=== PATIENT | female | born 1955 | race Caucasian/White ===

== ENCOUNTER → 2018-10-14 | Outpatient (CLI) | payer MEDICARE, OTHER ==
[2018-10-14 12:57] LABS: BASO % 0.5 % (0.0-1.0); EOS # 0.1 10^3/uL (0.0-0.50); EOS % 1.5 % (0.0-3.0); HEMATOCRIT 44.9 % (36.0-47.0); HEMOGLOBIN 14.6 g/dl (12.0-15.5); LYMPH # 1.5 10^3/uL (1.5-4.5); LYMPH % 24.9 % (24.0-44.0); MEAN CORPUSCULAR HGB CONC 32.5 g/dl (32.0-36.5); MEAN CORPUSCULAR VOLUME 89.3 fl (80.0-96.0); MONO # 0.5 10^3/uL (0.0-0.8); MONO % 8.7 % (0.0-5.0); NEUTROPHILS % 64.1 % (36.0-66.0); PLATELET COUNT, AUTOMATED 233 10^3/uL (150-450); RED BLOOD COUNT 5.03 10^6/uL (4.00-5.40); WHITE BLOOD COUNT 6.2 10^3/uL (4.0-10.0)
[2018-10-14 13:12] LABS: HEMOGLOBIN A1c 5.8 %
[2018-10-14 13:26] LABS: ALBUMIN 3.8 GM/DL (3.2-5.2); ALT/SGPT 18 U/L (12-78); BILIRUBIN,TOTAL 0.5 MG/DL (0.2-1.0); BLOOD UREA NITROGEN 23 MG/DL (7-18); CALCIUM LEVEL 8.6 MG/DL (8.8-10.2); CARBON DIOXIDE LEVEL 27 MEQ/L (21-32); CHLORIDE LEVEL 107 MEQ/L (98-107); CHOLESTEROL LEVEL 194 MG/DL (<200); CHOLESTEROL RISK RATIO 2.939 (<5); CPK CREATINE PHOSPHOKINASE 91 U/L (26-192); CREATININE FOR GFR 0.71 MG/DL (0.55-1.30); FREE T4 0.83 NG/DL (0.76-1.46); GLOMERULAR FILTRATION RATE > 60.0 (>45); GLUCOSE, FASTING 87 MG/DL (70-100); HDL CHOLESTEROL 66 MG/DL (>40); LDL CHOLESTEROL 116 MG/DL (<100); NON-HDL-C 128 MG/DL; POTASSIUM SERUM 4.3 MEQ/L (3.5-5.1); SODIUM LEVEL 141 MEQ/L (136-145); TOTAL PROTEIN 6.9 GM/DL (6.4-8.2); TRIGLYCERIDES LEVEL 59 MG/DL (<150)
== END ==
LOC: M WUC 08:37
PROVIDERS: ATTEND Physician Assistant
DX: E78.2 Mixed hyperlipidemia (principal)

== ENCOUNTER 2019-03-06 15:42 | Emergency (ER) | payer OTHER ==
[~2019-03-06] VITALS: Ht 170.2 cm; Wt 71.1 kg
[2019-03-06] MEDS ORDERED: ATOR1TAB19 PO (15:55)
[2019-03-06] MEDS ORDERED: D 1010004 PO (15:55)
[2019-03-06] MEDS ORDERED: MELO7.5T35 PO (15:55)
[2019-03-06] MEDS ORDERED: DERMABOND TOPICAL SKIN ADHESIVE TOP ONE (16:30)
[2019-03-06 17:50] VITALS: BP 146/95
--- NOTE | 2019-03-07 10:54 | REP ---
PA CHEST AND LEFT RIBS: 03/06/2019. Clinical history: Trauma, patient fell. Upper anterior rib pain. Findings: PA chest: There are no prior studies available at this time. Left lung well inflated and clear with CP angles sharply defined. The right CP angle is also sharply defined. There is hazy opacity obscuring the right heart border and more increased density immediately adjacent to the right heart border inferomedially. This is of uncertain significance. The left hilum unremarkable. The right hilum also fairly symmetric within it. The aorta is normal for age. Airway midline. Degenerative changes throughout the mid and lower thoracic spine and a soft tissue calcification over the greater tuberosity humeral head suggesting some calcific tendonitis. Left ribs: Four views show posterior rib articulations intact. There is no lateral pleural thickening, apical scarring or pneumothorax. The anterior ribs show no focal lesion or displaced fracture. Likewise remainder of ribs without any acute finding. Some degenerative changes inferior aspect glenohumeral joint. Degenerative osteophytes at all levels in the thoracic spine. No compression fractures. The rib series cannot discern the finding along the right heart border seen on the PA chest. Impression: 1. No plain film evidence of displaced rib fracture, focal rib lesion, pleural effusion or pneumothorax in the left chest. Some degenerative changes at the spine and left shoulder. 2. PA chest with patchy opacity along the right heart border of uncertain etiology. There is more solid component inferiorly and medially along that right heart border. A variety of causes could give findings such as these including epicardial fat pads, pectus excavatum configuration, atelectasis, infiltrate or masses. If no prior studies can be obtained, followup with CT. 3. Calcific tendonitis about the right shoulder. Electronically Signed by Andrews Caba MD 03/07/2019 11:14 A
--- NOTE | 2019-03-07 13:10 | REP ---
CT MAXILLOFACIAL WITHOUT CONTRAST: 03/06/2019. Clinical history: Left frontal and maxillary trauma. Technique: Standard axial protocol with coronal and sagittal bone window reconstructions. Findings: No prior studies. The mandible and alveolar ridge of the maxilla show no fracture or focal lesion. The nasal spine of the maxilla intact. Septum midline. Nasal bones intact. The orbital floors intact bilaterally. The ostium of the OMC was intact on both sides of the left maxillary antrum is developmentally smaller than the right. The orbital struts were intact. The orbital region intact. Orbital floor shows no fracture, medial orbital wall unremarkable. The zygomatic arches intact. There is a tiny air fluid level posteriorly in the right maxillary antrum but not the left. I do not see fracture of any of its mcguire. There is a partially paradoxical right middle turbinate as anatomic variation. The globes and intraorbital contents were intact. Supra orbital ridge shows no significant soft tissue swelling or hematoma. The malar region shows some mild swelling. The muscles of mastication symmetric and normal. Bilateral parotid and submandibular glands intact. Sphenoid sinus, ethmoid sinuses were clear. Mastoids intact. Remainder the skull base grossly intact without fracture. . Visualized portions of cervical spine unremarkable. Impression: 1. No facial bone fracture. There is very mild soft-tissue swelling of the left malar region. 2. I do not see any swelling about the orbital ridge on the right or left side. 3. There is a small air-fluid level in the right maxillary sinus without a definite fracture. This may reflect acute sinusitis. No other sign. No other findings. Electronically Signed by Andrews Caba MD 03/07/2019 01:14 P
--- NOTE | 2019-03-07 16:59 | ED PDOC ---
Post-Departure Follow-Up dr loretta ramesh faxed formal report of rib films for fu Allen García MD Mar 07, 2019 16:59
== END 2019-03-06 17:53 | disposition home or self-care (01) ==
LOC: M ED 15:42
DX: S01.01XA Laceration without foreign body of scalp, initial encounter (principal); S00.83XA Contusion of other part of head, initial encounter; W01.0XXA Fall on same level from slipping, tripping and stumbling without subsequent striking against object, initial encounter; Y92.89 Other specified places as the place of occurrence of the external cause; E78.00 Pure hypercholesterolemia, unspecified; M19.90 Unspecified osteoarthritis, unspecified site; Z79.899 Other long term (current) drug therapy

== ENCOUNTER → 2020-01-04 | Outpatient (REF) | payer OTHER ==
[~2020-01-04] MED LIST: ATOR1TAB19 PO; D 1010004 PO; MELO7.5T35 PO
== END ==
LOC: M LAB REF 16:36
PROVIDERS: ATTEND Family Medicine
DX: N76.0 Acute vaginitis (principal)

== ENCOUNTER → 2020-01-06 | Outpatient (CLI) | payer OTHER ==
[~2020-01-06] MED LIST changes: +CLON0.5T2; +MELO15TA28; +SERT50TA29
[2020-01-06 10:37] LABS: BASO % 0.4 % (0.0-1.0); EOS # 0.1 10^3/uL (0.0-0.5); EOS % 2.9 % (0.0-3.0); HEMATOCRIT 42.6 % (36.0-47.0); HEMOGLOBIN 13.8 g/dl (12.0-15.5); LYMPH # 1.6 10^3/uL (1.5-5.0); LYMPH % 33.3 % (24.0-44.0); MEAN CORPUSCULAR HEMOGLOBIN 28.9 pg (27.0-33.0); MEAN CORPUSCULAR HGB CONC 32.4 g/dl (32.0-36.5); MEAN CORPUSCULAR VOLUME 89.1 fl (80.0-96.0); MONO # 0.6 10^3/uL (0.0-0.8); MONO % 12.1 % (0.0-5.0); NEUTROPHILS # 2.5 10^3/uL (1.5-8.5); NEUTROPHILS % 51.1 % (36.0-66.0); PLATELET COUNT, AUTOMATED 220 10^3/uL (150-450); RED BLOOD COUNT 4.78 10^6/uL (4.00-5.40); WHITE BLOOD COUNT 4.8 10^3/uL (4.0-10.0)
[2020-01-06 11:19] LABS: ALBUMIN 3.6 GM/DL (3.2-5.2); ALT/SGPT 23 U/L (12-78); BILIRUBIN,TOTAL 0.6 MG/DL (0.2-1.0); BLOOD UREA NITROGEN 25 MG/DL (7-18); CALCIUM LEVEL 8.9 MG/DL (8.8-10.2); CARBON DIOXIDE LEVEL 27 MEQ/L (21-32); CHLORIDE LEVEL 110 MEQ/L (98-107); CHOLESTEROL LEVEL 171 MG/DL (<200); CHOLESTEROL RISK RATIO 2.442 (<5); CREATININE FOR GFR 0.67 MG/DL (0.55-1.30); FREE T4 0.85 NG/DL (0.76-1.46); GLOMERULAR FILTRATION RATE > 60.0 (>45); GLUCOSE, FASTING 79 MG/DL (70-100); HDL CHOLESTEROL 70 MG/DL (>40); LDL CHOLESTEROL 90 MG/DL (<100); NON-HDL-C 101 MG/DL; POTASSIUM SERUM 4.4 MEQ/L (3.5-5.1); SODIUM LEVEL 141 MEQ/L (136-145); TOTAL PROTEIN 6.7 GM/DL (6.4-8.2); TRIGLYCERIDES LEVEL 57 MG/DL (<150)
== END ==
LOC: M WUC 08:20
PROVIDERS: ATTEND Family Medicine
DX: E78.2 Mixed hyperlipidemia (principal)

== ENCOUNTER → 2020-05-31 | Outpatient (REF) | payer OTHER ==
[~2020-05-31] MED LIST changes: -CLON0.5T2; -MELO15TA28; -SERT50TA29
== END ==
LOC: M LAB REF 17:14
PROVIDERS: ATTEND Family Medicine
DX: Z11.3 Encounter for screening for infections with a predominantly sexual mode of transmission (principal)

== ENCOUNTER → 2020-05-31 | Outpatient (CLI) | payer OTHER ==
[2020-05-31 17:31] LABS: HIV 1&2 SCREEN CENTAUR NEGATIVE (NEGATIVE)
== END ==
LOC: M WUC 14:00
PROVIDERS: ATTEND Family Medicine
DX: Z11.3 Encounter for screening for infections with a predominantly sexual mode of transmission (principal)

== ENCOUNTER → 2020-06-16 | Outpatient (CLI) | payer OTHER ==
[~2020-06-16] MED LIST changes: +CLON0.5T2; +MELO15TA28; +SERT50TA29
== END ==
LOC: M LABSMTC 08:59
PROVIDERS: ATTEND Anesthesiology
DX: Z01.812 Encounter for preprocedural laboratory examination (principal); Z20.828 Contact with and (suspected) exposure to other viral communicable diseases

== ENCOUNTER 2020-06-21 12:06 | Day surgery (SDC) | payer OTHER ==
[~2020-06-21] VITALS: Ht 172.7 cm; Wt 69.9 kg
[~2020-06-21 12:06] MED LIST changes: +NS 1,000 ML IV ONE
[2020-06-21] MEDS ORDERED: LIDOCAINE 2% 100MG/5ML SDV (FOR ANES.) As Ordered ONE (13:01)
[2020-06-21] MEDS ORDERED: propofoL 200 MG/20 ML VIAL As Ordered ONE (14:24)
[2020-06-21] MEDS ORDERED: EPINEPHrine 1MG/10ML SYRINGE 1.5IN As Ordered ONE (14:57)
--- NOTE | 2020-06-21 15:19 | ROOR ---
Patient Name: Rima Nelson Procedure Date: 06/21/2020 2:43 PM Date of : 1955 Age: 65 Room: [facility] Gender: Female Note Status: Finalized Procedure: Upper GI endoscopy Indications: Dysphagia Providers: Taye Myers Jr, MD Referring MD: Azalea VILLELA DO Requesting Provider: Medicines: Propofol per Anesthesia Complications: No immediate complications. Procedure: Pre-Anesthesia Assessment: - Prior to the procedure, a History and Physical was performed, and patient medications and allergies were reviewed. The patient is competent. The risks and benefits of the procedure and the sedation options and risks were discussed with the patient. All questions were answered and informed consent was obtained. Patient identification and proposed procedure were verified by the physician and the nurse in the pre-procedure area and in the procedure room. Mental Status Examination: alert and oriented. Airway Examination: normal oropharyngeal airway and neck mobility. Respiratory Examination: clear to auscultation. CV Examination: normal. ASA Grade Assessment: II - A patient with mild systemic disease. After reviewing the risks and benefits, the patient was deemed in satisfactory condition to undergo the procedure. The anesthesia plan was to use moderate sedation / analgesia (conscious sedation). Immediately prior to administration of medications, the patient was re-assessed for adequacy to receive sedatives. The heart rate, respiratory rate, oxygen saturations, blood pressure, adequacy of pulmonary ventilation, and response to care were monitored throughout the procedure. The physical status of the patient was re-assessed after the procedure. The Endoscope was introduced through the mouth, and advanced to the second part of duodenum. The upper GI endoscopy was accomplished without difficulty. The patient tolerated the procedure well. Findings: The upper third of the esophagus, middle third of the esophagus and lower third of the esophagus were normal. A small hiatal hernia was present. One benign-appearing, intrinsic moderate stenosis was found at the gastroesophageal junction. This stenosis measured less than one cm (in length). The stenosis was traversed. A TTS dilator was passed through the scope. Dilation with a 15-16.5-18 mm balloon dilator was performed to 16.5 mm. The cardia, gastric fundus, gastric body, gastric antrum, prepyloric region of the stomach and pylorus were normal. The duodenal bulb, first portion of the duodenum and second portion of the duodenum were normal. Impression: - Normal upper third of esophagus, middle third of esophagus and lower third of esophagus. - Small hiatal hernia. - Benign-appearing esophageal stenosis. Dilated. - Normal cardia, gastric fundus, gastric body, antrum, prepyloric region of the stomach and pylorus. - Normal duodenal bulb, first portion of the duodenum and second portion of the duodenum. - No specimens collected. Recommendation: - Discharge patient to home (ambulatory). - Return to my office in 2 weeks. Procedure Code(s): --- Professional --- 09023, Esophagogastroduodenoscopy, flexible, transoral; with transendoscopic balloon dilation of esophagus (less than 30 mm diameter) Diagnosis Code(s): --- Professional --- K44.9, Diaphragmatic hernia without obstruction or gangrene K22.2, Esophageal obstruction R13.10, Dysphagia, unspecified CPT copyright 2019 [employer] [place] [employer] [employer]. All rights reserved. The codes documented in this report are preliminary and upon bristle machine operator review may be revised to meet current compliance requirements. Taye Myers MD Taye Myers Jr, MD 06/21/2020 3:18:27 PM Electronically signed by Taye Myers Jr, MD Number of Addenda: 0 Note Initiated On: 06/21/2020 2:43 PM Estimated Blood Loss: Estimated blood loss: none.
--- NOTE | 2020-06-21 15:21 | ROOR ---
Patient Name: Rima Nelson Procedure Date: 06/21/2020 2:44 PM Date of : 1955 Age: 65 Room: [facility] Gender: Female Note Status: Finalized Procedure: Colonoscopy Indications: Screening for colorectal malignant neoplasm Providers: Taye Myers Jr, MD Referring MD: Azalea VILLELA DO Requesting Provider: Medicines: Propofol per Anesthesia Complications: No immediate complications. Procedure: Pre-Anesthesia Assessment: - Prior to the procedure, a History and Physical was performed, and patient medications and allergies were reviewed. The patient is competent. The risks and benefits of the procedure and the sedation options and risks were discussed with the patient. All questions were answered and informed consent was obtained. Patient identification and proposed procedure were verified by the physician and the nurse in the pre-procedure area and in the procedure room. Mental Status Examination: alert and oriented. Airway Examination: normal oropharyngeal airway and neck mobility. Respiratory Examination: clear to auscultation. CV Examination: normal. ASA Grade Assessment: II - A patient with mild systemic disease. After reviewing the risks and benefits, the patient was deemed in satisfactory condition to undergo the procedure. The anesthesia plan was to use moderate sedation / analgesia (conscious sedation). Immediately prior to administration of medications, the patient was re-assessed for adequacy to receive sedatives. The heart rate, respiratory rate, oxygen saturations, blood pressure, adequacy of pulmonary ventilation, and response to care were monitored throughout the procedure. The physical status of the patient was re-assessed after the procedure. The Colonoscope was introduced through the anus and advanced to the cecum, identified by appendiceal orifice and ileocecal valve. The colonoscopy was performed without difficulty. The patient tolerated the procedure well. The quality of the bowel preparation was adequate. Findings: The rectum, recto-sigmoid colon, sigmoid colon, descending colon, transverse colon, ascending colon, cecum and ileocecal valve appeared normal. External internal hemorrhoids were found during endoscopy. The hemorrhoids were medium-sized. Impression: - The rectum, recto-sigmoid colon, sigmoid colon, descending colon, transverse colon, ascending colon, cecum and ileocecal valve are normal. - External internal hemorrhoids. - No specimens collected. Recommendation: - Repeat colonoscopy in 10 years for screening purposes. - Discharge patient to home (ambulatory). Procedure Code(s): --- Professional --- 66250, Colonoscopy, flexible; diagnostic, including collection of specimen(s) by brushing or washing, when performed (separate procedure) Diagnosis Code(s): --- Professional --- Z12.11, Encounter for screening for malignant neoplasm of colon K64.4, Residual hemorrhoidal skin tags K64.8, Other hemorrhoids CPT copyright 2019 [employer]. All rights reserved. The codes documented in this report are preliminary and upon billposter review may be revised to meet current compliance requirements. Taye Myers MD Taye Myers Jr, MD 06/21/2020 3:20:35 PM Electronically signed by Taye Myers Jr, MD Number of Addenda: 0 Note Initiated On: 06/21/2020 2:44 PM Estimated Blood Loss: Estimated blood loss: none.
[2020-06-21 15:45] VITALS: BP 157/92
== END 2020-06-21 16:03 | disposition home or self-care (01) ==
LOC: M OPP 12:06
PROVIDERS: ATTEND Surgery
DX: Z12.11 Encounter for screening for malignant neoplasm of colon (principal); K64.8 Other hemorrhoids; K44.9 Diaphragmatic hernia without obstruction or gangrene; K22.2 Esophageal obstruction; R13.10 Dysphagia, unspecified; Z79.899 Other long term (current) drug therapy
CPT/HCPCS: 43249; G0121

== ENCOUNTER → 2020-12-27 | Outpatient (CLI) | payer OTHER ==
[~2020-12-27] MED LIST changes: -NS 1,000 ML IV ONE
[2020-12-27 16:35] LABS: BASO % 0.7 % (0.0-1.0); EOS # 0.1 10^3/uL (0.0-0.5); EOS % 1.6 % (0.0-3.0); HEMATOCRIT 46.8 % (36.0-47.0); HEMOGLOBIN 14.7 g/dl (12.0-15.5); LYMPH # 1.5 10^3/uL (1.5-5.0); LYMPH % 33.6 % (24.0-44.0); MEAN CORPUSCULAR HEMOGLOBIN 28.5 pg (27.0-33.0); MEAN CORPUSCULAR HGB CONC 31.4 g/dl (32.0-36.5); MEAN CORPUSCULAR VOLUME 90.9 fl (80.0-96.0); MONO # 0.5 10^3/uL (0.0-0.8); MONO % 10.7 % (2.0-8.0); NEUTROPHILS # 2.4 10^3/uL (1.5-8.5); NEUTROPHILS % 53.2 % (36.0-66.0); PLATELET COUNT, AUTOMATED 226 10^3/uL (150-450); RED BLOOD COUNT 5.15 10^6/uL (4.00-5.40); WHITE BLOOD COUNT 4.5 10^3/uL (4.0-10.0)
[2020-12-27 16:56] LABS: ALT/SGPT 20 U/L (12-78); BILIRUBIN,TOTAL 0.6 MG/DL (0.2-1.0); BLOOD UREA NITROGEN 20 MG/DL (7-18); CALCIUM LEVEL 9.2 MG/DL (8.8-10.2); CARBON DIOXIDE LEVEL 27 MEQ/L (21-32); CHLORIDE LEVEL 108 MEQ/L (98-107); CHOLESTEROL LEVEL 196 MG/DL (<200); CREATININE FOR GFR 0.72 MG/DL (0.55-1.30); GLOMERULAR FILTRATION RATE > 60.0 (>45); GLUCOSE, FASTING 76 MG/DL (70-100); HDL CHOLESTEROL 80 MG/DL (>40); LDL CHOLESTEROL 103 MG/DL (<100); NON-HDL-C 116 MG/DL; POTASSIUM SERUM 4.2 MEQ/L (3.5-5.1); SODIUM LEVEL 140 MEQ/L (136-145); TOTAL PROTEIN 7.1 GM/DL (6.4-8.2); TRIGLYCERIDES LEVEL 63 MG/DL (<150)
== END ==
LOC: M WUC 10:17
PROVIDERS: ATTEND Physician Assistant
DX: E78.2 Mixed hyperlipidemia (principal)

== ENCOUNTER → 2022-09-16 | Outpatient (REF) | payer OTHER | LOC: M LAB REF 10:55 | PROVIDERS: ATTEND Nurse Practitioner Adult Health | DX: N89.8 Other specified noninflammatory disorders of vagina (principal) ==

== ENCOUNTER → 2023-01-29 | Outpatient (CLI) | payer OTHER ==
[2023-01-29 12:50] LABS: BASO % 0.6 % (0.0-1.0); EOS # 0.2 10^3/uL (0.0-0.5); EOS % 4.1 % (0.0-3.0); HEMATOCRIT 45.6 % (36.0-47.0); HEMOGLOBIN 14.6 g/dl (12.0-15.5); LYMPH # 1.5 10^3/uL (1.5-5.0); LYMPH % 33.1 % (24.0-44.0); MEAN CORPUSCULAR HEMOGLOBIN 28.4 pg (27.0-33.0); MEAN CORPUSCULAR VOLUME 88.7 fl (80.0-96.0); MONO # 0.4 10^3/uL (0.0-0.8); MONO % 9.5 % (2.0-8.0); NEUTROPHILS # 2.4 10^3/uL (1.5-8.5); NEUTROPHILS % 52.5 % (36.0-66.0); PLATELET COUNT, AUTOMATED 233 10^3/uL (150-450); RED BLOOD COUNT 5.14 10^6/uL (4.00-5.40); WHITE BLOOD COUNT 4.6 10^3/uL (4.0-10.0)
[2023-01-29 13:08] LABS: ALBUMIN 3.8 G/DL (3.2-5.2); ALKALINE PHOSPHATASE 91 U/L (46-116); ALT/SGPT 22 U/L (7.0-40); AST/SGOT 17 U/L (<34); BILIRUBIN,TOTAL 0.8 MG/DL (0.3-1.2); BLOOD UREA NITROGEN 22 MG/DL (9-23); CALCIUM LEVEL 9.9 MG/DL (8.3-10.6); CARBON DIOXIDE LEVEL 26 MMOL/L (20-31); CHLORIDE LEVEL 107 MMOL/L (98-107); CHOLESTEROL LEVEL 183 MG/DL (<200); CHOLESTEROL RISK RATIO 2.73 (<5); CREATININE FOR GFR 0.75 MG/DL (0.55-1.30); FREE T4 0.94 NG/DL (0.89-1.76); GLOMERULAR FILTRATION RATE > 60.0 (>45); GLUCOSE, FASTING 86 MG/DL (74-106); HDL CHOLESTEROL 66.8 MG/DL (>40); LDL CHOLESTEROL 103.2 MG/DL (<100); NON-HDL-C 116.2 MG/DL; POTASSIUM SERUM 4.2 MMOL/L (3.5-5.1); SODIUM LEVEL 141 MMOL/L (136-145); TOTAL PROTEIN 6.6 G/DL (5.7-8.2); TRIGLYCERIDES LEVEL 65 MG/DL (<150)
[2023-01-29 13:09] LABS: THYROID STIMULATING HORMONE 1.936 uIU/ML (0.55-4.78); TOTAL 25(OH) VITAMIN D 42.1 NG/ML (20.0-100.0); VITAMIN B12 LEVEL 958 PG/ML (211-911)
[2023-01-29 13:11] LABS: FOLATE 21.87 NG/ML (>5.4)
[2023-01-29 13:51] LABS: HEMOGLOBIN A1c 5.5 % (4.0-6.0)
== END ==
LOC: M WUC 09:09
PROVIDERS: ATTEND Physician Assistant
DX: E78.2 Mixed hyperlipidemia (principal); Z13.29 Encounter for screening for other suspected endocrine disorder

== ENCOUNTER → 2023-05-06 | Outpatient (REF) | payer OTHER ==
[2023-05-06 17:31] LABS: BLOOD UREA NITROGEN 25 MG/DL (9-23); CALCIUM LEVEL 9.3 MG/DL (8.3-10.6); CARBON DIOXIDE LEVEL 28 MMOL/L (20-31); CHLORIDE LEVEL 107 MMOL/L (98-107); CREATININE FOR GFR 0.93 MG/DL (0.55-1.30); GLOMERULAR FILTRATION RATE > 60.0 (>45); GLUCOSE, FASTING 111 MG/DL (74-106); POTASSIUM SERUM 4.7 MMOL/L (3.5-5.1); SODIUM LEVEL 140 MMOL/L (136-145)
== END ==
LOC: M LABWUC 16:22
PROVIDERS: ATTEND Family Medicine
DX: I10 Essential (primary) hypertension (principal)

== ENCOUNTER → 2023-05-21 | Outpatient (CLI) | payer OTHER | LOC: M CARPUL 08:34 | PROVIDERS: ATTEND Family Medicine | DX: R94.31 Abnormal electrocardiogram [ECG] [EKG] (principal) ==

== ENCOUNTER → 2023-09-07 | Outpatient (CLI) | payer OTHER ==
[2023-09-07 17:33] LABS: BASO % 0.7 % (0.0-1.0); EOS # 0.1 10^3/uL (0.0-0.5); EOS % 1.9 % (0.0-3.0); HEMATOCRIT 46.4 % (36.0-47.0); HEMOGLOBIN 14.9 g/dl (12.0-15.5); LYMPH # 2.1 10^3/uL (1.5-5.0); LYMPH % 39.6 % (24.0-44.0); MEAN CORPUSCULAR HEMOGLOBIN 29.3 pg (27.0-33.0); MEAN CORPUSCULAR HGB CONC 32.1 g/dl (32.0-36.5); MEAN CORPUSCULAR VOLUME 91.2 fl (80.0-96.0); MONO # 0.4 10^3/uL (0.0-0.8); MONO % 6.7 % (2.0-8.0); NEUTROPHILS # 2.7 10^3/uL (1.5-8.5); NEUTROPHILS % 50.9 % (36.0-66.0); PLATELET COUNT, AUTOMATED 248 10^3/uL (150-450); RED BLOOD COUNT 5.09 10^6/uL (4.00-5.40); WHITE BLOOD COUNT 5.4 10^3/uL (4.0-10.0)
[2023-09-07 17:54] LABS: ALBUMIN 3.9 G/DL (3.2-5.2); ALKALINE PHOSPHATASE 87 U/L (46-116); ALT/SGPT 23 U/L (7.0-40); AST/SGOT 18 U/L (<34); BILIRUBIN,TOTAL 0.8 MG/DL (0.3-1.2); BLOOD UREA NITROGEN 25 MG/DL (9-23); CALCIUM LEVEL 9.5 MG/DL (8.3-10.6); CARBON DIOXIDE LEVEL 28 MMOL/L (20-31); CHLORIDE LEVEL 109 MMOL/L (98-107); GLOMERULAR FILTRATION RATE > 60.0 (>39); GLUCOSE, FASTING 130 MG/DL (74-106); POTASSIUM SERUM 4.3 MMOL/L (3.5-5.1); SODIUM LEVEL 143 MMOL/L (136-145)
== END ==
LOC: M WUC 11:35
PROVIDERS: ATTEND Family Medicine
DX: I10 Essential (primary) hypertension (principal)